=== PATIENT | female | born 1965 | race Caucasian/White ===

== ENCOUNTER 2018-01-30 13:55 | Emergency (ER) | payer MEDICARE, OTHER ==
[2018-01-30] MEDS ORDERED: HYDROcodone/ACETAMIN 5-325 MG* 1 TAB PO ONE (15:03)
[2018-01-30] MEDS ORDERED: Ketorolac INJ* 60 MG/2 ML VIAL IM ONE (15:03)
--- NOTE | 2018-01-30 15:10 | UC ---
Back Pain HPI - HPI Summary HPI Summary: 52-year-old woman who comes in to clinic today with complaint of left flank pain and low back pain after a fall. Patient was coming down some steps and she slipped and fell. His happened just prior to arrival to clinic. It was 5 or 6 steps. Complaining of pain low back and left flank. She also struck her left arm but she tells me she does not worry about there being a fracture. She reports tingling in the legs primarily on the left. Chronic low back pain and she is being seen by her regular doctors in the pain clinic for that. She complains of weakness in the legs. When I asked her further about it she feels like every time she moves her legs the pain is worse a therefore she does not want to move her legs. No complaint of loss of urine or bowels. - History of Current Complaint Chief Complaint: UCBackPain Stated Complaint: BACK INJURY Time Seen by Provider: 01/30/18 14:53 Pain Intensity: 10 - Allergies/Home Medications Allergies/Adverse Reactions: Allergies Allergy/AdvReac Type Severity Reaction Status Date / Time risperidone [From Risperdal] Allergy Swelling Verified 01/30/18 14:26 Of Face,Lips,& Throat Home Medications: Home Medications Fexofenadine (NF) [Marilee (NF)] 1 tab PO DAILY 01/30/18 [History Confirmed ] Folic Acid 1 mg PO DAILY 01/30/18 [History Confirmed 01/30/18] Ketotifen Fumarate [Eye Itch Relief] 1 drop OPHTHALMIC DAILY 01/30/18 [History Confirmed 01/30/18] [place]-3 Fatty Acids/Fish Oil [[place] 3 1,000 mg Softgel] 1 tab PO DAILY 01/30/18 [History Confirmed 01/30/18] Pregabalin [Lyrica] 50 mg PO BID 01/30/18 [History Confirmed 01/30/18] diazePAM [Valium] 0.5 mg PO ONCE 01/30/18 [History Confirmed 01/30/18] oxyCODONE/Acetam5/325MG PREPAK [Percocet 5/325 TAB*] 0.5 tab PO DAILY PRN [History Confirmed 01/30/18] PMH/Surg Hx/FS Hx/Imm Hx - Additional Past Medical History Additional PMH: Chronic low back pain. - Surgical History Surgical History: Yes Surgery Procedure, Year, and Place: hysterectomy. appendectomy. reconstruction of the bladder - Social History Alcohol Use: None Substance Use Type: None Smoking Status (MU): Light Every Day Tobacco Smoker Amount Used/How Often: 4 cig/day Have You Smoked in the Last Year: Yes Household Exposure Type: Cigarettes Review of Systems Constitutional: Negative Skin: Negative Eyes: Negative ENT: Negative Respiratory: Negative Cardiovascular: Negative Gastrointestinal: Negative Genitourinary: Negative Motor: Other - SEE HPI Neurovascular: Negative Musculoskeletal: Other: - SEE HPI Neurological: Other - SEE HPI Psychological: Negative Is Patient Immunocompromised?: No All Other Systems Reviewed And Are Negative: Yes Physical Exam Triage Information Reviewed: Yes Appearance: Well-Appearing, Well-Nourished, Pain Distress - MILD WITH MOVEMENT Vital Signs: Initial Vital Signs Temp 98.3 F 01/30/18 14:17 Pulse 90 01/30/18 14:17 Resp 18 01/30/18 14:17 BP 135/82 01/30/18 14:17 Pulse Ox 97 01/30/18 14:17 Vital Signs Reviewed: Yes Eye Exam: Normal Eyes: Positive: Conjunctiva Clear Neck exam: Normal Neck: Positive: Supple Respiratory Exam: Normal Respiratory: Positive: Chest non-tender, Lungs clear, Normal breath sounds, No respiratory distress Cardiovascular Exam: Normal Cardiovascular: Positive: RRR Abdomen Description: Positive: Nontender, Soft, CVA Tenderness (L). Negative: CVA Tenderness (R) Bowel Sounds: Positive: Present Musculoskeletal Exam: Normal Musculoskeletal: Positive: Strength Intact, ROM Intact Neurological Exam: Normal Neurological: Positive: Alert, Muscle Tone Normal, Other: - No leg muscle weakness OR numbness appreciated on exam. Strength 5 out of 5 for plantar flexion and dorsiflexion knee flexion extension and hip flexion BIlaterally Psychological Exam: Normal Psychological: Positive: Age Appropriate Behavior Skin Exam: Normal Back Pain Course/Dx - Course Course Of Treatment: Order Information: CT SPINE LUMBAR W/O. Accession Number: [id number]. CPT: 66724. Indication: Back pain after fall. CT of the lumbar spine: Was obtained in the axial plane. Sagittal and coronal. reconstructed images were obtained. The vertebral bodies appear normal in height. No evidence of compression fracture is. noted. There is a tiny nondisplaced fracture of the left transverse process of L1. No. significant displacement is noted. Degenerative disc disease with mild grade 1 spondylolisthesis is L3 on 4 and L4 on 5 is. noted. IMPRESSION: Although there is no compression fracture there is a small nondisplaced. fracture of the left L1 transverse process. . < Electronically signed by Latrice Ball MD in [place]> 01/30/18 [id number]. Order Information : CT ABD/PEL W/O. Accession Number: [id number]. CPT: 71402. Indication: Low back pain, left flank pain after fall. CT of the abdomen and pelvis was performed without oral or IV contrast administration. Lung bases demonstrate no pleural fluid, nodules or masses. Heart is of normal size. without evidence of pericardial effusion. Liver is normal in size. No focal lesions or intrahepatic ductal dilatation is noted. Gallbladder demonstrates no calcified gallstones. The common duct is not dilated. No. pericholecystic fluid or wall thickening is noted. Pancreas demonstrates no mass or. pancreatic duct dilatation. The spleen is normal in size. No adrenal masses are noted. The kidneys demonstrate no hydronephrosis in either kidney. No perinephric masses are noted. Aorta and inferior vena cava are unremarkable. No. retroperitoneal lymphadenopathy is noted. CT of the pelvis demonstrates no retroperitoneal or pelvic lymphadenopathy. Stool is. present throughout the colon. The patient is status post hysterectomy with a cervical. remnant noted. No hernias are noted. Patient status post left femoral hernia repair. There. is a structure is some layering the left ovary the region of the left broad ligament. measuring 4.1 cm with likely cyst measures 3.1 cm. No free fluid is identified. There is a nondisplaced fracture of the left transverse process of L1. IMPRESSION: No evidence of free fluid is noted. Left ovarian cyst measuring up to 3.1 cm. No evidence of solid organ injury is noted. Nondisplaced fracture transverse process on the left of L1. . <Electronically signed by Latrice Ball MD in [place]> 01/30/18 [id number]. I discussed the CT results with the patient and her daughter. Urine did not have any blood in. The patient sees a pain clinic in [facility] and she was concerned about receiving any narcotics while here in [place] that she does not break her pain clinic contract. She did not bring her Percocet prescription help from [facility] and has no Percocet here. The plan for the pain medicine is to write a prescription for oxycodone 5 mg by mouth every 4 hours when necessary a total number of 10. Follow-up with her physician when she returns back to [facility]. I let her know that if she has any weakness or numbness or difficulty controlling urine or bowel she needs to get reevaluated right away. - Differential Dx/Diagnosis Provider Diagnoses: LEFT TRANSVERSE PROCESS L1 NONDISPLACED FRACTURE. LOW BACK PAIN. LEFT FLANK PAIN Discharge - Sign-Out/Discharge Documenting (check all that apply): Patient Departure All imaging exams completed and their final reports reviewed: Yes - Discharge Plan Condition: Stable Disposition: HOME Prescriptions: oxyCODONE TAB* [Roxycodone TAB 5 mg*] 5 mg PO Q4H PRN #10 tab MDD 6 PRN Reason: Pain Patient Education Materials: Flank Pain (ED), Acute Low Back Pain (ED) Referrals: [facility] [place] PHYSICIAN REFERRAL [Outside] Additional Instructions: FOLLOW UP WITH YOUR DOCTOR. YOU WERE GIVEN A PRESCRIPTION FOR OXYCODONE 5MG, #10 TO HELP YOUR PAIN BECAUSE YOU DID NOT HAVE YOUR PERCOCET WITH YOU FROM [facility]. GET RECHECKED FOR ANY WORSENING OF YOUR CONDITION; WEAKNESS, NUMBNESS, DIFFICULTY CONTROLLING BOWEL OR BLADDER OR QUESTIONS OR CONCERNS. - Billing Disposition and Condition Condition: STABLE Disposition: Home
--- NOTE | 2018-01-30 15:56 | RAD ---
Indication: Back pain after fall CT of the lumbar spine: Was obtained in the axial plane. Sagittal and coronal reconstructed images were obtained. The vertebral bodies appear normal in height. No evidence of compression fracture is noted. There is a tiny nondisplaced fracture of the left transverse process of L1. No significant displacement is noted. Degenerative disc disease with mild grade 1 spondylolisthesis is L3 on 4 and L4 on 5 is noted. IMPRESSION: Although there is no compression fracture there is a small nondisplaced fracture of the left L1 transverse process.
--- NOTE | 2018-01-30 15:57 | RAD ---
Indication: Low back pain, left flank pain after fall CT of the abdomen and pelvis was performed without oral or IV contrast administration. Lung bases demonstrate no pleural fluid, nodules or masses. Heart is of normal size without evidence of pericardial effusion. Liver is normal in size. No focal lesions or intrahepatic ductal dilatation is noted. Gallbladder demonstrates no calcified gallstones. The common duct is not dilated. No pericholecystic fluid or wall thickening is noted. Pancreas demonstrates no mass or pancreatic duct dilatation. The spleen is normal in size. No adrenal masses are noted. The kidneys demonstrate no hydronephrosis in either kidney. No perinephric masses are noted. Aorta and inferior vena cava are unremarkable. No retroperitoneal lymphadenopathy is noted. CT of the pelvis demonstrates no retroperitoneal or pelvic lymphadenopathy. Stool is present throughout the colon. The patient is status post hysterectomy with a cervical remnant noted. No hernias are noted. Patient status post left femoral hernia repair. There is a structure is some layering the left ovary the region of the left broad ligament measuring 4.1 cm with likely cyst measures 3.1 cm. No free fluid is identified. There is a nondisplaced fracture of the left transverse process of L1. IMPRESSION: No evidence of free fluid is noted. Left ovarian cyst measuring up to 3.1 cm. No evidence of solid organ injury is noted. Nondisplaced fracture transverse process on the left of L1.
[2018-01-30 16:27] VITALS: BP 110/88
== END 2018-01-30 16:30 | disposition home or self-care (01) ==
LOC: UCEAST 13:55
DX: S32.019A Unspecified fracture of first lumbar vertebra, initial encounter for closed fracture (principal); M54.5 Low back pain; F17.210 Nicotine dependence, cigarettes, uncomplicated; W10.9XXA Fall (on) (from) unspecified stairs and steps, initial encounter; Y92.9 Unspecified place or not applicable; Z88.8 Allergy status to other drugs, medicaments and biological substances
CPT/HCPCS: 72131; 74176; 81003; 96372; 99202; G0463; J1885

== ENCOUNTER 2018-12-13 11:33 | Emergency (ER) | payer MEDICARE ==
[2018-12-13 11:58] VITALS: BP 120/66
--- NOTE | 2018-12-13 14:14 | UC ---
Throat Pain/Nasal Ankur HPI - HPI Summary HPI Summary: The patient is a 53-year-old female that presents here with a 3 week history of hypersalivation. She also complains of her skin feeling mildly oily. She has had a 10 pound weight gain in the past month. States that she is having some jaw pain. She has had no fever or chills. She denies any nausea vomiting or diarrhea. She has symmetrical polyarthralgias. Her salivation is so severe that she sometimes drools. - History of Current Complaint Chief Complaint: UCDentalProblem Stated Complaint: EXCESSIVE SALIVA Time Seen by Provider: 12/13/18 13:42 Hx Obtained From: Patient Onset/Duration: Gradual Onset, Lasting Weeks Pain Intensity: 8 Pain Scale Used: 0-10 Numeric Cough: None - Allergies/Home Medications Allergies/Adverse Reactions: Allergies Allergy/AdvReac Type Severity Reaction Status Date / Time risperidone [From Risperdal] Allergy Swelling Verified 12/13/18 11:58 Of Face,Lips,& Throat PMH/Surg Hx/FS Hx/Imm Hx Previously Healthy: Yes - Fibro - Surgical History Surgical History: Yes Surgery Procedure, Year, and Place: hysterectomy. appendectomy. reconstruction of the bladder - Family History Known Family History: Positive: Cardiac Disease, Hypertension - Social History Alcohol Use: None Substance Use Type: None Smoking Status (MU): Light Every Day Tobacco Smoker Amount Used/How Often: 4 cig/day Have You Smoked in the Last Year: Yes Household Exposure Type: Cigarettes Review of Systems All Other Systems Reviewed And Are Negative: Yes Constitutional: Positive: Negative Skin: Positive: Negative Eyes: Positive: Negative ENT: Positive: Negative Respiratory: Positive: Negative Cardiovascular: Positive: Negative Gastrointestinal: Positive: Negative Genitourinary: Positive: Negative Motor: Positive: Negative Neurovascular: Positive: Negative Musculoskeletal: Positive: Arthralgia Neurological: Positive: Negative Psychological: Positive: Negative Physical Exam Triage Information Reviewed: Yes Appearance: Well-Appearing, No Pain Distress, Well-Nourished Vital Signs: Initial Vital Signs Temp 98 F 12/13/18 11:54 Pulse 82 12/13/18 11:54 Resp 18 12/13/18 11:54 BP 120/66 12/13/18 11:54 Pulse Ox 97 12/13/18 11:54 Vital Signs Reviewed: Yes Eyes: Positive: Conjunctiva Clear ENT: Positive: Hearing grossly normal, TMs normal, Uvula midline. Negative: Pharyngeal erythema, Nasal congestion, Nasal drainage, Tonsillar swelling, Tonsillar exudate, Trismus, Muffled voice, Hoarse voice, Sinus tenderness Dental Exam: Normal Neck: Positive: Supple, Nontender, No Lymphadenopathy Respiratory: Positive: Chest non-tender, Lungs clear Cardiovascular: Positive: RRR, No Murmur Musculoskeletal: Positive: Strength Intact, ROM Intact Neurological: Positive: Alert Psychological Exam: Normal Skin Exam: Normal Throat Pain/Nasal Course/Dx - Differential Dx/Diagnosis Provider Diagnosis: Hypersalivation, Jaw pain, non-TMJ Discharge ED - Sign-Out/Discharge Documenting (check all that apply): Patient Departure All imaging exams completed and their final reports reviewed: No Studies - Discharge Plan Condition: Stable Disposition: HOME Prescriptions: Glycopyrrolate 1 mg PO TID PRN #21 tablet PRN Reason: Sialorrhea Referrals: No Primary Care Phys,NOPCP [Primary Care Provider] - - Billing Disposition and Condition Condition: STABLE Disposition: Home
[2018-12-13 19:21] LABS: ABS Basophils 0.1 10^3/ul (0-0.2); ABS Eosinophils 0.1 10^3/ul (0-0.6); ABS Lymphocytes 3.9 10^3/ul (1.0-4.8); ABS Monocytes 0.6 10^3/ul (0-0.8); ABS Neutrophils 4.9 10^3/ul (1.5-7.7); Eosinophil % 0.9 %; Hematocrit 47 % (35-47); Hemoglobin 16.2 g/dL (12.0-16.0); Lymphocyte % 40.6 %; Mean Corpuscular HGB Conc 34 g/dL (31-36); Mean Corpuscular Hemoglobin 33 pg (27-31); Mean Corpuscular Volume 95 fL (80-97); Mean Platelet Volume 9.8 fL (7.4-10.4); Nucleated Red Blood Cells % 0.2; Platelet Count 195 10^3/uL (150-450); Red Blood Count 4.97 10^6 /uL (3.70-4.87); Red Cell Distribution Width 13 % (10-15); White Blood Count 9.5 10^3/uL (3.5-10.8)
[2018-12-13 19:46] LABS: TSH (Thyroid Stimulating Horm) 1.93 mcIU/mL (0.34-5.60)
[2018-12-13 21:49] LABS: Albumin 4.8 g/dL (3.2-5.2); Calcium 9.8 mg/dL (8.6-10.3); Potassium 4.1 mmol/L (3.5-5.0); Total Bilirubin 0.6 mg/dL (0.2-1.0)
[2018-12-13 21:55] LABS: Albumin/Globulin Ratio 2.3 (1-3); BUN/Creatinine Ratio 30.4 (8-20); EGFR Non-African American 112.4 (>60); Globulin 2.1 g/dL (2-4); Total Protein 6.9 g/dL (6.4-8.9)
[2018-12-13 22:33] LABS: Erythrocyte Sed Rate 5 mm/Hr (0-29)
--- NOTE | 2018-12-14 07:57 | UC ---
- Progress Note Progress Note: Lab results come back from December 13, 2018. Patient was here for hypersalivation. CBC CMP and TSH were drawn. Abnormal lab values include hemoglobin being elevated at 16.2. Normal is 12-16, 000. Alkaline phosphatase was elevated at 108. Normal is 34-104. RBC was elevated at 4.97. Normal is 3. 74.87. MCH was elevated 33. Normal is 27-31. The rest of the lab results to include TSH were normal throughout right. Will not of these lab values is very far out of normal range nursing to call patient inform him of the results and to ensure follow-up with his primary care physician. Course/Dx - Diagnoses Provider Diagnoses: Hypersalivation, Jaw pain, non-TMJ Discharge ED - Sign-Out/Discharge Documenting (check all that apply): Patient Departure All imaging exams completed and their final reports reviewed: No Studies - Discharge Plan Condition: Stable Disposition: HOME Prescriptions: Glycopyrrolate 1 mg PO TID PRN #21 tablet PRN Reason: Sialorrhea Referrals: No Primary Care Phys,NOPCP [Primary Care Provider] - Additional Instructions: I am not sure what is causing your symptoms blood work is pending please see your MD first available appt - Billing Disposition and Condition Condition: STABLE Disposition: Home
== END 2018-12-13 14:15 | disposition home or self-care (01) ==
LOC: UCEAST 11:33
DX: K11.7 Disturbances of salivary secretion (principal); R68.84 Jaw pain; F17.210 Nicotine dependence, cigarettes, uncomplicated
CPT/HCPCS: 36415; 80053; 84443; 85025; 85652; 86038; 99212; G0463